=== PATIENT | male | born 1970 | race Caucasian/White ===

== ENCOUNTER 2020-12-08 15:57 | Inpatient (IN) | payer MEDICAID, OTHER ==
[~2020-12-08] VITALS: Ht 175.3 cm; Wt 127.0 kg
[2020-12-08 17:39] LABS: BASOPHILS % (AUTO) 1.1 % (0.0-2.0); EOSINOPHILS % (AUTO) 2.4 % (1.0-6.0); HEMATOCRIT 42.5 % (41-53); HEMOGLOBIN 14.5 g/dL (13.5-17.5); LYMPHOCYTES # (AUTO) 1.7 K/uL (1.0-4.8); MEAN CORPUSCULAR HEMOGLOBIN 28.7 pg (26.0-34.0); MEAN CORPUSCULAR HGB CONC 34.1 G/dL (31.0-37.0); MEAN CORPUSCULAR VOLUME 84 fL (80-100); MONOCYTES # (AUTO) 0.5 K/uL (0.1-1.0); MONOCYTES % (AUTO) 5.7 % (2.0-9.0); NEUTROPHILS # (AUTO) 6.1 K/uL (1.8-7.7); NEUTROPHILS % (AUTO) 70.8 % (40.0-70.0); PLATELET COUNT (AUTO) 433 K/uL (150-450); RED BLOOD CELL COUNT(AUTO) 5.05 MIL/uL (4.50-5.90)
[2020-12-08 17:48] LABS: ANION GAP 6 mmol/L (8-16); CALCIUM, TOTAL 10.9 mg/dL (8.8-10.5); CARBON DIOXIDE 28 mmol/L (22-29); CHLORIDE 104 mmol/L (98-107); CREATININE 1.76 mg/dL (0.60-1.30); GLOMERULAR FILTR. RATE CALC 41 mL/min (>60); GLUCOSE,RANDOM 140 mg/dL (70-110); POTASSIUM 4.3 mmol/L (3.5-5.1); SODIUM SERUM 138 mmol/L (136-145); UREA NITROGEN, BLOOD 21 mg/dL (7-18)
[2020-12-08 17:54] LABS: ALANINE AMINOTRANSFERASE 33 U/L (12-78); ALBUMIN 2.7 g/dL (3.4-5.0); ALKALINE PHOSPHATASE 83 U/L (46-116); ASPARTATE AMINOTRANSFERASE 23 U/L (15-37); BILIRUBIN,TOTAL 0.3 mg/dL (0.1-1.0); TOTAL PROTEIN, SERUM 8.2 g/dL (6.4-8.2)
[2020-12-08 19:13] LABS: COVID AG,FIA SOURCE NASOPHARYNGEAL
[2020-12-08 20:24] LABS: AMPHET/METH SCREEN,URINE POSITIVE (NEGATIVE); BARBITURATE SCREEN, URINE NEGATIVE (NEGATIVE); BENZODIAZEPINES SCREEN,URINE NEGATIVE (NEGATIVE); CANNABINOID SCREEN,URINE POSITIVE (NEGATIVE); COCAINE SCREEN,URINE NEGATIVE (NEGATIVE); METHADONE SCREEN, URINE NEGATIVE (NEGATIVE); OPIATE SCREEN,URINE NEGATIVE (NEGATIVE)
[2020-12-08 20:26] LABS: PHENCYCLIDINE SCREEN,URINE NEGATIVE (NEGATIVE)
[2020-12-08] MEDS ORDERED: HALOPERIDOL 5 MG TABLET PO PRN (20:45)
[2020-12-08] MEDS ORDERED: LORazepam 2 MG TABLET PO PRN (20:45)
[2020-12-08 21:42] VITALS: BP 134/95
[2020-12-09] MEDS ORDERED: GuaiFENesin/D-METHORPHAN [SUGAR-FREE] 200-20MG/10 ML SYRUP UDCUP PO PRN (06:45)
[2020-12-09] MEDS ORDERED: LOPERAMIDE HCL 2 MG CAPSULE PO PRN (06:45)
[2020-12-09] MEDS ORDERED: ALBUTEROL SULFATE HFA 90 MCG/PUFF 8 GM INHALER IH PRN (06:45)
[2020-12-09] MEDS ORDERED: ACETAMINOPHEN 325 MG TABLET PO PRN (06:45)
[2020-12-09] MEDS ORDERED: PETROLATUM,WHITE 28 GM JELLY TP PRN (06:45)
[2020-12-09] MEDS ORDERED: ONDANSETRON HCL 4 MG TABLET PO PRN (06:45)
[2020-12-09] MEDS ORDERED: DOCUSATE SODIUM 100 MG CAPSULE PO PRN (06:45)
[2020-12-09] MEDS ORDERED: CloNIDine HCL 0.1 MG TABLET PO PRN (06:45)
[2020-12-09] MEDS ORDERED: MAGNESIUM HYDROXIDE SUSPENSION 30 ML UDCUP PO PRN (06:45)
[2020-12-09] MEDS ORDERED: NICOTINE 14 MG/24 HOUR PATCH TD PRN (06:45)
[2020-12-09] MEDS: CLINDAMYCIN HCL 300 MG CAPSULE PO SCH ×2 (08:08→16:39)
[2020-12-09] MEDS: CEPHALEXIN MONOHYDRATE 500 MG CAPSULE PO SCH ×2 (08:08→16:39)
[2020-12-09] MEDS ORDERED: SULFAMETHOX/TRIMETH DS 800-160 MG/TABLET PO SCH (09:00)
[2020-12-09] MEDS ORDERED: CEPHALEXIN MONOHYDRATE 500 MG CAPSULE PO SCH (09:00)
[2020-12-09 09:40] VITALS: BP 145/98
[2020-12-09 16:00] VITALS: BP 121/97
[2020-12-09] MEDS: ZOLPIDEM TARTRATE 10 MG TABLET PO PRN (22:05)
[2020-12-10] MEDS: CLINDAMYCIN HCL 300 MG CAPSULE PO SCH ×3 (00:11→16:20)
[2020-12-10] MEDS: CEPHALEXIN MONOHYDRATE 500 MG CAPSULE PO SCH ×3 (00:11→16:20)
[2020-12-10 09:07] VITALS: BP 149/96
[2020-12-10 10:06] LABS: CHOL/HDL RATIO 6.5 (4.2-7.3)
[2020-12-10] MEDS: OLANZapine 10 MG TABLET PO SCH (16:20)
[2020-12-10 17:39] VITALS: BP 128/91
[2020-12-11] MEDS: CLINDAMYCIN HCL 300 MG CAPSULE PO SCH ×4 (00:05→23:53)
[2020-12-11] MEDS: CEPHALEXIN MONOHYDRATE 500 MG CAPSULE PO SCH ×4 (00:05→23:52)
[2020-12-11] MEDS: OLANZapine 10 MG TABLET PO SCH ×2 (08:12→16:27)
[2020-12-11 09:03] VITALS: BP 155/103
[2020-12-11 16:00] VITALS: BP 135/88
[2020-12-12 00:05] VITALS: BP 140/93
[2020-12-12] MEDS: CLINDAMYCIN HCL 300 MG CAPSULE PO SCH ×3 (08:53→23:54)
[2020-12-12] MEDS: CEPHALEXIN MONOHYDRATE 500 MG CAPSULE PO SCH ×3 (08:53→23:58)
[2020-12-12] MEDS: OLANZapine 10 MG TABLET PO SCH ×2 (08:53→16:44)
[2020-12-12 11:21] VITALS: BP 116/86
[2020-12-12 16:30] VITALS: BP 127/88
[2020-12-12 19:00] VITALS: BP 132/88
[2020-12-12] MEDS: IBUPROFEN 400 MG TABLET PO PRN (19:02)
[2020-12-12] MEDS: MAG HYDROX/AL HYDROX/SIMETH ES 30 ML SUSPENSION UDCUP PO PRN (19:02)
[2020-12-13 07:33] LABS: CALCIUM, TOTAL 9.3 mg/dL (8.8-10.5); CREATININE 1.62 mg/dL (0.60-1.30); POTASSIUM 4.7 mmol/L (3.5-5.1)
[2020-12-13 09:52] VITALS: BP 128/71
[2020-12-13] MEDS: CEPHALEXIN MONOHYDRATE 500 MG CAPSULE PO SCH ×3 (10:39→23:41)
[2020-12-13] MEDS: OLANZapine 10 MG TABLET PO SCH ×2 (10:39→16:11)
[2020-12-13] MEDS: CLINDAMYCIN HCL 300 MG CAPSULE PO SCH ×3 (10:40→23:42)
[2020-12-13 16:30] VITALS: BP 131/83
[2020-12-13] MEDS: MAG HYDROX/AL HYDROX/SIMETH ES 30 ML SUSPENSION UDCUP PO PRN (19:00)
[2020-12-14 08:00] VITALS: BP 159/89
[2020-12-14] MEDS: OLANZapine 10 MG TABLET PO SCH ×2 (08:04→16:27)
[2020-12-14] MEDS: CEPHALEXIN MONOHYDRATE 500 MG CAPSULE PO SCH ×2 (08:04→16:27)
[2020-12-14] MEDS: CLINDAMYCIN HCL 300 MG CAPSULE PO SCH ×2 (08:04→16:27)
[2020-12-14 13:33] LABS: COVID AG,FIA SOURCE NASOPHARYNGEAL
[2020-12-14 16:30] VITALS: BP 144/82
[2020-12-14] MEDS: MAG HYDROX/AL HYDROX/SIMETH ES 30 ML SUSPENSION UDCUP PO PRN (18:59)
[2020-12-15] MEDS: CEPHALEXIN MONOHYDRATE 500 MG CAPSULE PO SCH ×3 (00:49→16:20)
[2020-12-15 00:53] VITALS: BP 146/100
[2020-12-15] MEDS: IBUPROFEN 400 MG TABLET PO PRN (00:53)
[2020-12-15] MEDS: OLANZapine 10 MG TABLET PO SCH ×2 (08:56→16:20)
[2020-12-15 10:03] VITALS: BP 142/69
[2020-12-15 16:00] VITALS: BP 145/97
[2020-12-15] MEDS: ZOLPIDEM TARTRATE 10 MG TABLET PO PRN (22:00)
[2020-12-16] MEDS: CEPHALEXIN MONOHYDRATE 500 MG CAPSULE PO SCH ×4 (01:28→23:38)
[2020-12-16] MEDS: OLANZapine 10 MG TABLET PO SCH ×2 (08:49→16:19)
[2020-12-16 10:10] VITALS: BP 145/97
[2020-12-16 16:47] VITALS: BP 146/92
[2020-12-16] MEDS: MAG HYDROX/AL HYDROX/SIMETH ES 30 ML SUSPENSION UDCUP PO PRN (21:53)
[2020-12-16] MEDS: ZOLPIDEM TARTRATE 10 MG TABLET PO PRN (22:58)
[2020-12-16 23:45] VITALS: BP 169/97
[2020-12-16] MEDS: IBUPROFEN 400 MG TABLET PO PRN (23:47)
[2020-12-17] MEDS: OLANZapine 10 MG TABLET PO SCH ×2 (08:35→17:06)
[2020-12-17] MEDS: CEPHALEXIN MONOHYDRATE 500 MG CAPSULE PO SCH ×4 (08:35→17:00)
[2020-12-17 09:00] VITALS: BP 127/75
[2020-12-17 16:00] VITALS: BP 136/93
[2020-12-18] MEDS: CEPHALEXIN MONOHYDRATE 500 MG CAPSULE PO SCH ×3 (00:31→16:26)
[2020-12-18 00:43] VITALS: BP 153/110
[2020-12-18] MEDS: ZOLPIDEM TARTRATE 10 MG TABLET PO PRN (00:43)
[2020-12-18 08:33] VITALS: BP 146/75
[2020-12-18] MEDS: OLANZapine 10 MG TABLET PO SCH ×2 (08:58→16:26)
[2020-12-18 16:00] VITALS: BP 160/70
[2020-12-19] MEDS: OLANZapine 10 MG TABLET PO SCH (08:17)
[2020-12-19 08:35] VITALS: BP 136/90
[2020-12-19] MEDS ORDERED: OLAN10TA3 PO (11:15)
[2020-12-19] MEDS: MAG HYDROX/AL HYDROX/SIMETH ES 30 ML SUSPENSION UDCUP PO PRN (13:54)
== END 2020-12-19 14:45 | disposition home or self-care (01) | DRG 750 ==
LOC: EMS 15:57 → 3EI 20:34
PROVIDERS: ADMIT Psychiatry & Neurology Psychiatry; ATTEND Psychiatry & Neurology Psychiatry
DX: F25.0 Schizoaffective disorder, bipolar type (principal); R45.851 Suicidal ideations; L03.115 Cellulitis of right lower limb; E83.51 Hypocalcemia; F15.90 Other stimulant use, unspecified, uncomplicated; F12.90 Cannabis use, unspecified, uncomplicated; N17.9 Acute kidney failure, unspecified; N18.9 Chronic kidney disease, unspecified; F17.210 Nicotine dependence, cigarettes, uncomplicated; Z91.040 Latex allergy status; Z20.822 Contact with and (suspected) exposure to COVID-19; Z91.14 Patient's other noncompliance with medication regimen
CPT/HCPCS: 87426; 99285; G0480

== ENCOUNTER 2021-03-22 11:21 | Inpatient (IN) | payer MEDICAID, OTHER ==
[~2021-03-22] VITALS: Ht 172.7 cm; Wt 125.0 kg
[~2021-03-22 11:21] MED LIST: OLAN10TA3 PO
[2021-03-22 13:01] LABS: GLUCOMETER DEV NAME(LOC) AHU.; GLUCOSE,POINT OF CARE 539 MG/DL (70-110)
[2021-03-22] MEDS ORDERED: SODIUM CHLORIDE 0.9% 1,000 ML IV ONE ×2 (13:15→15:45)
[2021-03-22 13:29] LABS: AMPHET/METH SCREEN,URINE POSITIVE (NEGATIVE); BARBITURATE SCREEN, URINE NEGATIVE (NEGATIVE); BENZODIAZEPINES SCREEN,URINE NEGATIVE (NEGATIVE); CANNABINOID SCREEN,URINE NEGATIVE (NEGATIVE); COCAINE SCREEN,URINE NEGATIVE (NEGATIVE); METHADONE SCREEN, URINE NEGATIVE (NEGATIVE); OPIATE SCREEN,URINE NEGATIVE (NEGATIVE)
[2021-03-22 13:30] LABS: PHENCYCLIDINE SCREEN,URINE NEGATIVE (NEGATIVE)
[2021-03-22 13:39] LABS: BASOPHILS % (AUTO) 0.5 % (0.0-2.0); EOSINOPHILS % (AUTO) 1.2 % (1.0-6.0); HEMATOCRIT 41.4 % (41-53); HEMOGLOBIN 13.6 g/dL (13.5-17.5); LYMPHOCYTES # (AUTO) 0.9 K/uL (1.0-4.8); LYMPHOCYTES % (AUTO) 16.5 % (22.0-44.0); MEAN CORPUSCULAR HEMOGLOBIN 28.4 pg (26.0-34.0); MEAN CORPUSCULAR HGB CONC 32.9 G/dL (31.0-37.0); MEAN CORPUSCULAR VOLUME 86 fL (80-100); MONOCYTES # (AUTO) 0.3 K/uL (0.1-1.0); MONOCYTES % (AUTO) 5.5 % (2.0-9.0); NEUTROPHILS # (AUTO) 4.4 K/uL (1.8-7.7); NEUTROPHILS % (AUTO) 76.3 % (40.0-70.0); PLATELET COUNT (AUTO) 202 K/uL (150-450); RED BLOOD CELL COUNT(AUTO) 4.79 MIL/uL (4.50-5.90); RED CELL DISTRIBUTION WIDTH 14.8 % (11.5-14.5)
[2021-03-22 13:53] LABS: CALCIUM, TOTAL 9.3 mg/dL (8.8-10.5); CREATININE 1.87 mg/dL (0.60-1.30); POTASSIUM 3.8 mmol/L (3.5-5.1)
[2021-03-22] MEDS ORDERED: INSULIN REGULAR, HUMAN 100 UNITS/ML IVP ONE (14:00)
[2021-03-22] MEDS ORDERED: PIPERACILLIN SODIUM/TAZOBACTAM 4.5 GM in DEXTROSE 5%-WATER 100 ML IV ONE (14:15)
[2021-03-22] MEDS ORDERED: VANCOMYCIN HCL 1.5 GM in DEXTROSE 5%-WATER 250 ML IV ONE (14:15)
[2021-03-22 14:25] LABS: COVID AG,FIA SOURCE NASOPHARYNGEAL
[2021-03-22 14:30] LABS: C-REACTIVE PROTEIN QUANT 2.08 mg/dL (0.00-0.30)
[2021-03-22 15:27] LABS: GLUCOMETER DEV NAME(LOC) AHU.; GLUCOSE,POINT OF CARE 458 MG/DL (70-110)
[2021-03-22 15:32] LABS: ERYTHROCYTE SEDIMENTATION RATE 82 MM/HR (0-15)
[2021-03-22] MEDS ORDERED: MAGNESIUM HYDROXIDE SUSPENSION 30 ML UDCUP PO PRN (15:45)
[2021-03-22] MEDS ORDERED: ZOLPIDEM TARTRATE 5 MG TABLET PO PRN (15:45)
[2021-03-22] MEDS ORDERED: DEXTROSE 50%-WATER 25 GM/50 ML SYRINGE IVP PRN (15:45)
[2021-03-22] MEDS ORDERED: BISACODYL 10 MG RECTAL RECTAL SUPPOSITORY PR PRN (15:45)
[2021-03-22] MEDS ORDERED: ACETAMINOPHEN 325 MG TABLET PO PRN (15:45)
[2021-03-22] MEDS ORDERED: ONDANSETRON HCL 4 MG/2 ML VIAL IVP PRN (15:45)
[2021-03-22] MEDS: HEPARIN SODIUM,PORCINE 5,000 UNITS/ML VIAL SQ SCH ×2 (15:50→23:28)
[2021-03-22] MEDS: INSULIN LISPRO 100 UNITS/ML SQ PRN ×2 (17:53→20:32)
[2021-03-22 19:30] VITALS: BP 134/69
[2021-03-22] MEDS: VANCOMYCIN HCL 1 GM/D5% WATER 200 ML IV SCH (19:47)
[2021-03-22] MEDS: OLANZapine 10 MG TABLET PO SCH (20:30)
[2021-03-22] MEDS: DOCUSATE SODIUM 100 MG CAPSULE PO SCH (20:30)
[2021-03-22 20:56] LABS: GLUCOMETER DEV NAME(LOC) 6N.1; GLUCOSE,POINT OF CARE 478 MG/DL (70-110)
[2021-03-22] MEDS ORDERED: INSULIN GLARGINE,HUM.REC.ANLOG 100 UNITS/ML SQ SCH (21:00)
[2021-03-22] MEDS: PIPERACILLIN/TAZO 3.375 GM/D5W 50 ML IV SCH (22:25)
[2021-03-23 00:32] VITALS: BP 131/68
[2021-03-23] MEDS: PIPERACILLIN/TAZO 3.375 GM/D5W 50 ML IV SCH ×4 (03:51→21:32)
[2021-03-23 05:14] VITALS: BP 152/76
[2021-03-23] MEDS: INSULIN LISPRO 100 UNITS/ML SQ PRN ×4 (05:21→20:44)
[2021-03-23 06:28] LABS: BASOPHILS % (AUTO) 0.8 % (0.0-2.0); EOSINOPHILS % (AUTO) 0.9 % (1.0-6.0); HEMATOCRIT 39.7 % (41-53); HEMOGLOBIN 13.5 g/dL (13.5-17.5); LYMPHOCYTES # (AUTO) 0.9 K/uL (1.0-4.8); LYMPHOCYTES % (AUTO) 15.9 % (22.0-44.0); MEAN CORPUSCULAR HEMOGLOBIN 29.5 pg (26.0-34.0); MEAN CORPUSCULAR VOLUME 87 fL (80-100); MONOCYTES # (AUTO) 0.3 K/uL (0.1-1.0); MONOCYTES % (AUTO) 5.5 % (2.0-9.0); NEUTROPHILS # (AUTO) 4.6 K/uL (1.8-7.7); NEUTROPHILS % (AUTO) 76.9 % (40.0-70.0); PLATELET COUNT (AUTO) 194 K/uL (150-450); RED BLOOD CELL COUNT(AUTO) 4.58 MIL/uL (4.50-5.90); RED CELL DISTRIBUTION WIDTH 14.8 % (11.5-14.5)
[2021-03-23 06:47] LABS: CALCIUM, TOTAL 8.1 mg/dL (8.8-10.5); CREATININE 2.16 mg/dL (0.60-1.30); POTASSIUM 3.9 mmol/L (3.5-5.1)
[2021-03-23 06:59] LABS: GLUCOMETER DEV NAME(LOC) 6N.1; GLUCOSE,POINT OF CARE 407 MG/DL (70-110)
[2021-03-23 07:36] VITALS: BP 131/86
[2021-03-23] MEDS ORDERED: INSULIN LISPRO 100 UNITS/ML SQ ONE (08:00)
[2021-03-23] MEDS: OLANZapine 10 MG TABLET PO SCH ×2 (08:06→20:36)
[2021-03-23] MEDS: PANTOPRAZOLE SODIUM 40 MG DR TABLET PO SCH (08:06)
[2021-03-23] MEDS: HEPARIN SODIUM,PORCINE 5,000 UNITS/ML VIAL SQ SCH ×2 (08:07→16:29)
[2021-03-23] MEDS: INSULIN GLARGINE,HUM.REC.ANLOG 100 UNITS/ML SQ SCH ×2 (08:09→20:43)
[2021-03-23] MEDS: DOCUSATE SODIUM 100 MG CAPSULE PO SCH ×2 (08:14→20:36)
[2021-03-23 09:36] LABS: GLUCOMETER DEV NAME(LOC) 6N.1; GLUCOSE,POINT OF CARE 421 MG/DL (70-110)
[2021-03-23] MEDS: VANCOMYCIN HCL 1 GM/D5% WATER 200 ML IV SCH (09:39)
[2021-03-23 12:21] LABS: GLUCOMETER DEV NAME(LOC) 6S.1; GLUCOSE,POINT OF CARE 328 MG/DL (70-110)
[2021-03-23] MEDS ORDERED: SODIUM CHLORIDE 0.9% 1,000 ML IV ONE (12:45)
[2021-03-23 17:59] LABS: GLUCOMETER DEV NAME(LOC) 6S.1; GLUCOSE,POINT OF CARE 364 MG/DL (70-110)
[2021-03-23 19:40] VITALS: BP 134/84
[2021-03-24] VITALS (9 sets, daily range): BP systolic 132–194; BP diastolic 82–108
[2021-03-24] MEDS: HEPARIN SODIUM,PORCINE 5,000 UNITS/ML VIAL SQ SCH ×4 (00:09→23:23)
[2021-03-24] MEDS: PIPERACILLIN/TAZO 3.375 GM/D5W 50 ML IV SCH ×4 (04:08→22:29)
[2021-03-24 05:58] LABS: GLUCOMETER DEV NAME(LOC) 6N.1; GLUCOSE,POINT OF CARE 397 MG/DL (70-110)
[2021-03-24 05:58] LABS: GLUCOMETER DEV NAME(LOC) 6N.1; GLUCOSE,POINT OF CARE 262 MG/DL (70-110)
[2021-03-24] MEDS: INSULIN LISPRO 100 UNITS/ML SQ PRN ×4 (06:14→20:10)
[2021-03-24 06:44] LABS: BASOPHILS % (AUTO) 0.7 % (0.0-2.0); EOSINOPHILS % (AUTO) 1.3 % (1.0-6.0); HEMATOCRIT 41.3 % (41-53); HEMOGLOBIN 13.8 g/dL (13.5-17.5); LYMPHOCYTES % (AUTO) 22.2 % (22.0-44.0); MEAN CORPUSCULAR HEMOGLOBIN 28.8 pg (26.0-34.0); MEAN CORPUSCULAR HGB CONC 33.5 G/dL (31.0-37.0); MEAN CORPUSCULAR VOLUME 86 fL (80-100); MONOCYTES # (AUTO) 0.2 K/uL (0.1-1.0); NEUTROPHILS # (AUTO) 3.3 K/uL (1.8-7.7); NEUTROPHILS % (AUTO) 70.8 % (40.0-70.0); PLATELET COUNT (AUTO) 197 K/uL (150-450); RED CELL DISTRIBUTION WIDTH 14.5 % (11.5-14.5)
[2021-03-24 07:05] LABS: ANION GAP 7 mmol/L (8-16); CALCIUM, TOTAL 8.4 mg/dL (8.8-10.5); CARBON DIOXIDE 27 mmol/L (22-29); CHLORIDE 99 mmol/L (98-107); GLOMERULAR FILTR. RATE CALC 46 mL/min (>60); GLUCOSE,RANDOM 339 mg/dL (70-110); POTASSIUM 3.6 mmol/L (3.5-5.1); SODIUM SERUM 133 mmol/L (136-145); UREA NITROGEN, BLOOD 15 mg/dL (7-18)
[2021-03-24] MEDS ORDERED: PROPOFOL 1000 MG/ISO-OSM 100 ML IV ONE (08:21)
[2021-03-24 08:26] LABS: CHOL/HDL RATIO 9.2 (4.2-7.3); CHOLESTEROL 312 mg/dL (131-200); HDL CHOLESTEROL 34 mg/dL (40-60); TRIGLYCERIDES 833 mg/dL (15-150)
[2021-03-24] MEDS: DOCUSATE SODIUM 100 MG CAPSULE PO SCH ×2 (09:00→20:08)
[2021-03-24] MEDS: PANTOPRAZOLE SODIUM 40 MG DR TABLET PO SCH (09:00)
[2021-03-24] MEDS: INSULIN GLARGINE,HUM.REC.ANLOG 100 UNITS/ML SQ SCH ×2 (09:00→20:09)
[2021-03-24] MEDS: OLANZapine 10 MG TABLET PO SCH ×2 (09:00→20:08)
[2021-03-24] MEDS: ASCORBIC ACID 500 MG TABLET PO SCH (09:00)
[2021-03-24] MEDS ORDERED: GELATIN SPONGE,ABSORBABLE 100 MM TP ONE (09:07)
[2021-03-24] MEDS ORDERED: THROMBIN, BOVINE 20000 UNITS/VIAL POWDER TP ONE (09:07)
[2021-03-24 10:47] LABS: GLUCOMETER DEV NAME(LOC) 6N.1; GLUCOSE,POINT OF CARE 291 MG/DL (70-110)
[2021-03-24 13:33] LABS: GLUCOMETER DEV NAME(LOC) 6S.1; GLUCOSE,POINT OF CARE 354 MG/DL (70-110)
[2021-03-24] MEDS ORDERED: SODIUM CHLORIDE 0.9% 1,000 ML IV ONE (14:00)
[2021-03-24] MEDS: AmLODIPine BESYLATE 5 MG TABLET PO SCH (14:49)
[2021-03-24] MEDS ORDERED: LORazepam 2 MG/ML VIAL IVP PRN (16:15)
[2021-03-24] MEDS: MORPHINE SULFATE 2 MG/ML SYRINGE IVP PRN (17:58)
[2021-03-24 18:27] LABS: GLUCOMETER DEV NAME(LOC) 6S.1; GLUCOSE,POINT OF CARE 305 MG/DL (70-110)
[2021-03-24] MEDS: HYDROCODONE/ACETAMINOPHEN 5-325 MG TABLET PO PRN (20:07)
[2021-03-24 20:51] LABS: GLUCOMETER DEV NAME(LOC) 6S.1; GLUCOSE,POINT OF CARE 391 MG/DL (70-110)
[2021-03-24] MEDS ORDERED: SODIUM CHLORIDE 0.9% 500 ML IV ONE (22:33)
[2021-03-25] MEDS ORDERED: LIDOCAINE/PF 2% 5 ML VIAL IM ONE (01:31)
[2021-03-25] MEDS ORDERED: FentaNYL CITRATE PF 100 MCG/2 ML VIAL IVP ONE (01:31)
[2021-03-25] MEDS ORDERED: MIDAZOLAM HCL 2 MG/2 ML VIAL IVP ONE (01:31)
[2021-03-25 04:00] VITALS: BP 159/79
[2021-03-25] MEDS: PIPERACILLIN/TAZO 3.375 GM/D5W 50 ML IV SCH ×4 (04:23→22:10)
[2021-03-25] MEDS: INSULIN LISPRO 100 UNITS/ML SQ PRN ×4 (05:24→22:20)
[2021-03-25 06:04] LABS: GLUCOMETER DEV NAME(LOC) 6N.1; GLUCOSE,POINT OF CARE 283 MG/DL (70-110)
[2021-03-25 06:17] LABS: BASOPHILS % (AUTO) 0.5 % (0.0-2.0); EOSINOPHILS % (AUTO) 1.1 % (1.0-6.0); HEMATOCRIT 41.2 % (41-53); LYMPHOCYTES % (AUTO) 18.1 % (22.0-44.0); MEAN CORPUSCULAR HEMOGLOBIN 28.9 pg (26.0-34.0); MEAN CORPUSCULAR HGB CONC 33.9 G/dL (31.0-37.0); MEAN CORPUSCULAR VOLUME 85 fL (80-100); MONOCYTES # (AUTO) 0.3 K/uL (0.1-1.0); MONOCYTES % (AUTO) 5.9 % (2.0-9.0); NEUTROPHILS # (AUTO) 4.2 K/uL (1.8-7.7); NEUTROPHILS % (AUTO) 74.4 % (40.0-70.0); PLATELET COUNT (AUTO) 188 K/uL (150-450); RED BLOOD CELL COUNT(AUTO) 4.83 MIL/uL (4.50-5.90); RED CELL DISTRIBUTION WIDTH 14.6 % (11.5-14.5)
[2021-03-25 07:02] LABS: CREATININE 1.44 mg/dL (0.60-1.30); POTASSIUM 3.9 mmol/L (3.5-5.1)
[2021-03-25 08:10] VITALS: BP 140/90
[2021-03-25] MEDS: DOCUSATE SODIUM 100 MG CAPSULE PO SCH ×2 (09:06→22:09)
[2021-03-25] MEDS: AmLODIPine BESYLATE 5 MG TABLET PO SCH (09:06)
[2021-03-25] MEDS: OLANZapine 10 MG TABLET PO SCH ×2 (09:06→22:09)
[2021-03-25] MEDS: HEPARIN SODIUM,PORCINE 5,000 UNITS/ML VIAL SQ SCH ×2 (09:06→15:35)
[2021-03-25] MEDS: PANTOPRAZOLE SODIUM 40 MG DR TABLET PO SCH (09:06)
[2021-03-25] MEDS: ASCORBIC ACID 500 MG TABLET PO SCH ×2 (09:08→22:09)
[2021-03-25] MEDS: INSULIN GLARGINE,HUM.REC.ANLOG 100 UNITS/ML SQ SCH ×2 (09:10→22:20)
[2021-03-25] MEDS: MULTIVITAMINS WITH MINERALS, THERAPEUTIC TABLET PO SCH (09:13)
[2021-03-25 15:29] VITALS: BP 166/96
[2021-03-25 15:37] VITALS: BP 150/79
[2021-03-25] MEDS: HYDROCODONE/ACETAMINOPHEN 5-325 MG TABLET PO PRN (17:02)
[2021-03-25] MEDS ORDERED: PNEUMOCOCCAL VACCINE POLYVALENT 0.5 ML VIAL [PPSV23] IM. ONE (18:15)
[2021-03-25 19:27] LABS: GLUCOMETER DEV NAME(LOC) 6N.1; GLUCOSE,POINT OF CARE 336 MG/DL (70-110)
[2021-03-25 19:28] LABS: GLUCOMETER DEV NAME(LOC) 6S.1; GLUCOSE,POINT OF CARE 319 MG/DL (70-110)
[2021-03-25 19:45] VITALS: BP 132/76
[2021-03-25 22:38] LABS: GLUCOMETER DEV NAME(LOC) 6N.1; GLUCOSE,POINT OF CARE 402 MG/DL (70-110)
[2021-03-25 23:30] VITALS: BP 159/59
[2021-03-26] MEDS: HEPARIN SODIUM,PORCINE 5,000 UNITS/ML VIAL SQ SCH ×4 (00:14→23:43)
[2021-03-26 03:40] VITALS: BP 147/73
[2021-03-26 04:02] LABS: GLUCOMETER DEV NAME(LOC) 6N.1; GLUCOSE,POINT OF CARE 363 MG/DL (70-110)
[2021-03-26] MEDS: PIPERACILLIN/TAZO 3.375 GM/D5W 50 ML IV SCH ×4 (05:25→23:43)
[2021-03-26] MEDS: INSULIN LISPRO 100 UNITS/ML SQ PRN ×4 (05:26→21:34)
[2021-03-26] MEDS ORDERED: SODIUM CHLORIDE 0.9% 250 ML IV ONE (05:27)
[2021-03-26 07:23] LABS: GLUCOMETER DEV NAME(LOC) 6N.1; GLUCOSE,POINT OF CARE 335 MG/DL (70-110)
[2021-03-26 07:48] VITALS: BP 136/88
[2021-03-26] MEDS: MULTIVITAMINS WITH MINERALS, THERAPEUTIC TABLET PO SCH (08:41)
[2021-03-26] MEDS: ASCORBIC ACID 500 MG TABLET PO SCH ×2 (08:41→20:15)
[2021-03-26] MEDS: INSULIN GLARGINE,HUM.REC.ANLOG 100 UNITS/ML SQ SCH ×2 (08:41→21:34)
[2021-03-26] MEDS: AmLODIPine BESYLATE 5 MG TABLET PO SCH (08:42)
[2021-03-26] MEDS: DOCUSATE SODIUM 100 MG CAPSULE PO SCH ×2 (08:42→20:15)
[2021-03-26] MEDS: PANTOPRAZOLE SODIUM 40 MG DR TABLET PO SCH (08:42)
[2021-03-26] MEDS: OLANZapine 10 MG TABLET PO SCH ×2 (08:43→20:15)
[2021-03-26 12:45] LABS: GLUCOMETER DEV NAME(LOC) 6N.1; GLUCOSE,POINT OF CARE 344 MG/DL (70-110)
[2021-03-26 15:36] VITALS: BP 125/81
[2021-03-26 19:34] LABS: GLUCOMETER DEV NAME(LOC) 6N.1; GLUCOSE,POINT OF CARE 331 MG/DL (70-110)
[2021-03-26 19:50] VITALS: BP 103/65
[2021-03-26] MEDS: HYDROCODONE/ACETAMINOPHEN 5-325 MG TABLET PO PRN (20:16)
[2021-03-26 22:38] LABS: GLUCOMETER DEV NAME(LOC) 6N.1; GLUCOSE,POINT OF CARE 362 MG/DL (70-110)
[2021-03-27 00:05] VITALS: BP 93/56
[2021-03-27] MEDS: PIPERACILLIN/TAZO 3.375 GM/D5W 50 ML IV SCH ×4 (02:58→22:06)
[2021-03-27 04:05] VITALS: BP 131/71
[2021-03-27] MEDS: INSULIN LISPRO 100 UNITS/ML SQ PRN ×4 (05:49→20:55)
[2021-03-27 06:21] LABS: BASOPHILS % (AUTO) 0.5 % (0.0-2.0); EOSINOPHILS % (AUTO) 1.6 % (1.0-6.0); HEMATOCRIT 41.8 % (41-53); LYMPHOCYTES # (AUTO) 1.4 K/uL (1.0-4.8); LYMPHOCYTES % (AUTO) 18.7 % (22.0-44.0); MEAN CORPUSCULAR HEMOGLOBIN 28.9 pg (26.0-34.0); MEAN CORPUSCULAR HGB CONC 33.4 G/dL (31.0-37.0); MEAN CORPUSCULAR VOLUME 87 fL (80-100); MONOCYTES # (AUTO) 0.5 K/uL (0.1-1.0); MONOCYTES % (AUTO) 6.8 % (2.0-9.0); NEUTROPHILS # (AUTO) 5.3 K/uL (1.8-7.7); NEUTROPHILS % (AUTO) 72.4 % (40.0-70.0); PLATELET COUNT (AUTO) 217 K/uL (150-450); RED BLOOD CELL COUNT(AUTO) 4.83 MIL/uL (4.50-5.90); RED CELL DISTRIBUTION WIDTH 14.6 % (11.5-14.5)
[2021-03-27 06:30] LABS: CREATININE 1.69 mg/dL (0.60-1.30); POTASSIUM 4.4 mmol/L (3.5-5.1)
[2021-03-27 07:35] VITALS: BP 146/88
[2021-03-27] MEDS: INSULIN GLARGINE,HUM.REC.ANLOG 100 UNITS/ML SQ SCH ×2 (08:48→20:55)
[2021-03-27] MEDS: DOCUSATE SODIUM 100 MG CAPSULE PO SCH ×2 (08:50→20:12)
[2021-03-27] MEDS: AmLODIPine BESYLATE 5 MG TABLET PO SCH (08:50)
[2021-03-27] MEDS: PANTOPRAZOLE SODIUM 40 MG DR TABLET PO SCH (08:50)
[2021-03-27] MEDS: HEPARIN SODIUM,PORCINE 5,000 UNITS/ML VIAL SQ SCH ×3 (08:50→23:25)
[2021-03-27] MEDS: MULTIVITAMINS WITH MINERALS, THERAPEUTIC TABLET PO SCH (08:50)
[2021-03-27] MEDS: OLANZapine 10 MG TABLET PO SCH ×2 (08:50→20:12)
[2021-03-27] MEDS: ASCORBIC ACID 500 MG TABLET PO SCH ×2 (08:50→20:12)
[2021-03-27 08:56] LABS: GLUCOMETER DEV NAME(LOC) 6S.1; GLUCOSE,POINT OF CARE 237 MG/DL (70-110)
[2021-03-27 09:03] LABS: GLUCOMETER DEV NAME(LOC) 6S.1; GLUCOSE,POINT OF CARE 326 MG/DL (70-110)
[2021-03-27 14:00] VITALS: BP 141/86
[2021-03-27 14:52] LABS: GLUCOMETER DEV NAME(LOC) 6S.1; GLUCOSE,POINT OF CARE 327 MG/DL (70-110)
[2021-03-27 18:02] LABS: GLUCOMETER DEV NAME(LOC) 6S.1; GLUCOSE,POINT OF CARE 321 MG/DL (70-110)
[2021-03-27] MEDS: MORPHINE SULFATE 2 MG/ML SYRINGE IVP PRN (20:14)
[2021-03-27 20:34] VITALS: BP 130/70
[2021-03-27 22:10] LABS: GLUCOMETER DEV NAME(LOC) 6S.1; GLUCOSE,POINT OF CARE 300 MG/DL (70-110)
[2021-03-27 23:20] VITALS: BP 100/59
[2021-03-28] MEDS: PIPERACILLIN/TAZO 3.375 GM/D5W 50 ML IV SCH ×4 (04:34→22:43)
[2021-03-28 04:55] VITALS: BP 113/66
[2021-03-28] MEDS: INSULIN LISPRO 100 UNITS/ML SQ PRN ×4 (06:24→20:01)
[2021-03-28 06:27] LABS: GLUCOMETER DEV NAME(LOC) 6N.1; GLUCOSE,POINT OF CARE 232 MG/DL (70-110)
[2021-03-28 07:21] LABS: BASOPHILS % (AUTO) 0.5 % (0.0-2.0); EOSINOPHILS % (AUTO) 1.4 % (1.0-6.0); HEMATOCRIT 42.5 % (41-53); HEMOGLOBIN 14.2 g/dL (13.5-17.5); LYMPHOCYTES # (AUTO) 1.5 K/uL (1.0-4.8); LYMPHOCYTES % (AUTO) 18.8 % (22.0-44.0); MEAN CORPUSCULAR HGB CONC 33.5 G/dL (31.0-37.0); MEAN CORPUSCULAR VOLUME 87 fL (80-100); MONOCYTES # (AUTO) 0.5 K/uL (0.1-1.0); MONOCYTES % (AUTO) 5.7 % (2.0-9.0); NEUTROPHILS # (AUTO) 5.9 K/uL (1.8-7.7); NEUTROPHILS % (AUTO) 73.6 % (40.0-70.0); PLATELET COUNT (AUTO) 210 K/uL (150-450); RED BLOOD CELL COUNT(AUTO) 4.91 MIL/uL (4.50-5.90); RED CELL DISTRIBUTION WIDTH 14.4 % (11.5-14.5)
[2021-03-28 07:34] LABS: CALCIUM, TOTAL 9.3 mg/dL (8.8-10.5); CREATININE 1.94 mg/dL (0.60-1.30)
[2021-03-28 08:09] VITALS: BP 137/63
[2021-03-28] MEDS: OLANZapine 10 MG TABLET PO SCH ×2 (09:18→20:01)
[2021-03-28] MEDS: MULTIVITAMINS WITH MINERALS, THERAPEUTIC TABLET PO SCH (09:18)
[2021-03-28] MEDS: DOCUSATE SODIUM 100 MG CAPSULE PO SCH ×2 (09:18→20:01)
[2021-03-28] MEDS: ASCORBIC ACID 500 MG TABLET PO SCH ×2 (09:18→20:01)
[2021-03-28] MEDS: AmLODIPine BESYLATE 5 MG TABLET PO SCH (09:19)
[2021-03-28] MEDS: HEPARIN SODIUM,PORCINE 5,000 UNITS/ML VIAL SQ SCH ×3 (09:19→22:43)
[2021-03-28] MEDS: PANTOPRAZOLE SODIUM 40 MG DR TABLET PO SCH (09:19)
[2021-03-28] MEDS: INSULIN GLARGINE,HUM.REC.ANLOG 100 UNITS/ML SQ SCH ×2 (09:22→20:02)
[2021-03-28 15:08] VITALS: BP 112/68
[2021-03-28] MEDS ORDERED: SODIUM CHLORIDE 0.9% 250 ML IV ONE (17:03)
[2021-03-28 19:24] VITALS: BP 122/75
[2021-03-28] MEDS: HYDROCODONE/ACETAMINOPHEN 5-325 MG TABLET PO PRN (20:00)
[2021-03-28 23:27] LABS: GLUCOMETER DEV NAME(LOC) 6N.1; GLUCOSE,POINT OF CARE 301 MG/DL (70-110)
[2021-03-28 23:27] LABS: GLUCOMETER DEV NAME(LOC) 6N.1; GLUCOSE,POINT OF CARE 347 MG/DL (70-110)
[2021-03-28 23:27] LABS: GLUCOMETER DEV NAME(LOC) 6N.1; GLUCOSE,POINT OF CARE 316 MG/DL (70-110)
[2021-03-28 23:58] VITALS: BP 122/80
[2021-03-29 04:55] VITALS: BP 125/73
[2021-03-29] MEDS: PIPERACILLIN/TAZO 3.375 GM/D5W 50 ML IV SCH ×2 (05:02→09:10)
[2021-03-29] MEDS: INSULIN LISPRO 100 UNITS/ML SQ PRN ×2 (05:03→11:41)
[2021-03-29 06:00] LABS: BASOPHILS % (AUTO) 0.8 % (0.0-2.0); EOSINOPHILS % (AUTO) 1.7 % (1.0-6.0); HEMATOCRIT 42.8 % (41-53); HEMOGLOBIN 14.4 g/dL (13.5-17.5); LYMPHOCYTES # (AUTO) 1.7 K/uL (1.0-4.8); LYMPHOCYTES % (AUTO) 22.2 % (22.0-44.0); MEAN CORPUSCULAR HEMOGLOBIN 28.9 pg (26.0-34.0); MEAN CORPUSCULAR HGB CONC 33.6 G/dL (31.0-37.0); MEAN CORPUSCULAR VOLUME 86 fL (80-100); MONOCYTES # (AUTO) 0.6 K/uL (0.1-1.0); NEUTROPHILS # (AUTO) 5.4 K/uL (1.8-7.7); NEUTROPHILS % (AUTO) 68.3 % (40.0-70.0); PLATELET COUNT (AUTO) 202 K/uL (150-450); RED BLOOD CELL COUNT(AUTO) 4.98 MIL/uL (4.50-5.90); RED CELL DISTRIBUTION WIDTH 14.3 % (11.5-14.5)
[2021-03-29 06:07] LABS: CALCIUM, TOTAL 9.1 mg/dL (8.8-10.5); CREATININE 1.79 mg/dL (0.60-1.30); POTASSIUM 3.9 mmol/L (3.5-5.1)
[2021-03-29 06:27] LABS: GLUCOMETER DEV NAME(LOC) 6S.1; GLUCOSE,POINT OF CARE 244 MG/DL (70-110)
[2021-03-29 07:47] VITALS: BP 151/99
[2021-03-29] MEDS: MULTIVITAMINS WITH MINERALS, THERAPEUTIC TABLET PO SCH (09:06)
[2021-03-29] MEDS: ASCORBIC ACID 500 MG TABLET PO SCH (09:06)
[2021-03-29] MEDS: PANTOPRAZOLE SODIUM 40 MG DR TABLET PO SCH (09:06)
[2021-03-29] MEDS: DOCUSATE SODIUM 100 MG CAPSULE PO SCH (09:06)
[2021-03-29] MEDS: OLANZapine 10 MG TABLET PO SCH (09:06)
[2021-03-29] MEDS: HEPARIN SODIUM,PORCINE 5,000 UNITS/ML VIAL SQ SCH (09:06)
[2021-03-29] MEDS: AmLODIPine BESYLATE 5 MG TABLET PO SCH (09:06)
[2021-03-29] MEDS: INSULIN GLARGINE,HUM.REC.ANLOG 100 UNITS/ML SQ SCH (09:09)
[2021-03-29] MEDS ORDERED: AMLO-257 PO (11:53)
[2021-03-29] MEDS ORDERED: ASCO500 PO (11:53)
[2021-03-29] MEDS ORDERED: MULT-711 PO (11:54)
[2021-03-29] MEDS ORDERED: ACET-2247 PO (11:55)
[2021-03-29] MEDS ORDERED: AMOX1TAB16 PO (11:57)
[2021-03-29] MEDS ORDERED: DOXY-354 PO (11:59)
[2021-03-29 13:40] LABS: GLUCOMETER DEV NAME(LOC) 6S.1; GLUCOSE,POINT OF CARE 388 MG/DL (70-110)
== END 2021-03-29 12:05 | disposition home health service (06) | DRG 380 ==
LOC: EMS 11:26 → 6N 15:32
PROVIDERS: ADMIT Internal Medicine; ATTEND Internal Medicine
DX: E11.69 Type 2 diabetes mellitus with other specified complication (principal); L97.519 Non-pressure chronic ulcer of other part of right foot with unspecified severity; L97.509 Non-pressure chronic ulcer of other part of unspecified foot with unspecified severity; E87.3 Alkalosis; N17.9 Acute kidney failure, unspecified; E11.621 Type 2 diabetes mellitus with foot ulcer; E87.1 Hypo-osmolality and hyponatremia; E11.22 Type 2 diabetes mellitus with diabetic chronic kidney disease; M86.8X9 Other osteomyelitis, unspecified sites; E11.65 Type 2 diabetes mellitus with hyperglycemia; L03.115 Cellulitis of right lower limb; Z68.41 Body mass index [BMI] 40.0-44.9, adult; I12.9 Hypertensive chronic kidney disease with stage 1 through stage 4 chronic kidney disease, or unspecified chronic kidney disease; F17.210 Nicotine dependence, cigarettes, uncomplicated; E66.9 Obesity, unspecified; F12.90 Cannabis use, unspecified, uncomplicated; F15.10 Other stimulant abuse, uncomplicated; Z89.411 Acquired absence of right great toe; Z79.4 Long term (current) use of insulin; N18.9 Chronic kidney disease, unspecified; Z88.8 Allergy status to other drugs, medicaments and biological substances; Z91.14 Patient's other noncompliance with medication regimen; Z20.822 Contact with and (suspected) exposure to COVID-19
CPT/HCPCS: 73718; 80048; 80061; 82009; 82962; 83036; 85025; 85651; 86140; 87070; 87205; 87426; 88305; 88311; 97161; 97530; 99285; J1644; J1815; J2250; J2270; J2405; J2543; J2704; J3010; J3370; J3490; J7030; J7040; J7050; J7060

== ENCOUNTER 2021-07-06 15:55 | Emergency (ER) | payer OTHER ==
[~2021-07-06] VITALS: Ht 177.8 cm; Wt 131.8 kg
[~2021-07-06 15:55] MED LIST changes: +ACET-2247 PO; +AMLO-257 PO; +AMOX1TAB16 PO; +ASCO500 PO; +DOXY-354 PO; +MULT-711 PO; -OLAN10TA3 PO; +OLAN10TA74 PO
[2021-07-06 16:48] VITALS: BP 159/94
[2021-07-06 17:12] LABS: BASOPHILS % (AUTO) 0.7 % (0.0-2.0); EOSINOPHILS % (AUTO) 1.7 % (1.0-6.0); HEMATOCRIT 41.9 % (41-53); HEMOGLOBIN 13.9 g/dL (13.5-17.5); LYMPHOCYTES # (AUTO) 1.2 K/uL (1.0-4.8); LYMPHOCYTES % (AUTO) 15.9 % (22.0-44.0); MEAN CORPUSCULAR HEMOGLOBIN 27.7 pg (26.0-34.0); MEAN CORPUSCULAR HGB CONC 33.2 G/dL (31.0-37.0); MEAN CORPUSCULAR VOLUME 84 fL (80-100); MONOCYTES # (AUTO) 0.4 K/uL (0.1-1.0); NEUTROPHILS # (AUTO) 5.6 K/uL (1.8-7.7); NEUTROPHILS % (AUTO) 75.7 % (40.0-70.0); PLATELET COUNT (AUTO) 226 K/uL (150-450); RED BLOOD CELL COUNT(AUTO) 5.02 MIL/uL (4.50-5.90); RED CELL DISTRIBUTION WIDTH 14.6 % (11.5-14.5)
[2021-07-06 17:23] LABS: ANION GAP 2 mmol/L (8-16); CALCIUM, TOTAL 9.3 mg/dL (8.8-10.5); CARBON DIOXIDE 30 mmol/L (22-29); CHLORIDE 102 mmol/L (98-107); CREATININE 1.67 mg/dL (0.60-1.30); GLOMERULAR FILTR. RATE CALC 44 mL/min (>60); GLUCOSE,RANDOM 277 mg/dL (70-110); SODIUM SERUM 134 mmol/L (136-145); UREA NITROGEN, BLOOD 16 mg/dL (7-18)
[2021-07-06 17:30] LABS: ALANINE AMINOTRANSFERASE 29 U/L (12-78); ALBUMIN 2.9 g/dL (3.4-5.0); ALKALINE PHOSPHATASE 89 U/L (46-116); ASPARTATE AMINOTRANSFERASE 20 U/L (15-37); BILIRUBIN,TOTAL 0.5 mg/dL (0.1-1.0); TOTAL PROTEIN, SERUM 7.4 g/dL (6.4-8.2)
[2021-07-06 18:20] LABS: COVID AG,FIA SOURCE NASOPHARYNGEAL
[2021-07-06 18:44] LABS: AMPHET/METH SCREEN,URINE POSITIVE (NEGATIVE); BARBITURATE SCREEN, URINE NEGATIVE (NEGATIVE); BENZODIAZEPINES SCREEN,URINE NEGATIVE (NEGATIVE); CANNABINOID SCREEN,URINE POSITIVE (NEGATIVE); COCAINE SCREEN,URINE NEGATIVE (NEGATIVE); METHADONE SCREEN, URINE NEGATIVE (NEGATIVE); OPIATE SCREEN,URINE NEGATIVE (NEGATIVE)
[2021-07-06 18:50] LABS: PHENCYCLIDINE SCREEN,URINE NEGATIVE (NEGATIVE)
== END 2021-07-06 18:47 | disposition home or self-care (01) ==
LOC: EMS 15:55
DX: F25.9 Schizoaffective disorder, unspecified (principal); F31.9 Bipolar disorder, unspecified; F15.90 Other stimulant use, unspecified, uncomplicated; E11.9 Type 2 diabetes mellitus without complications; F17.210 Nicotine dependence, cigarettes, uncomplicated; F12.90 Cannabis use, unspecified, uncomplicated; Z20.822 Contact with and (suspected) exposure to COVID-19; Z91.040 Latex allergy status
CPT/HCPCS: 36415; 80053; 80307; 82962; 85025; 87426; 99284; G0480